=== PATIENT | female | born 1990 | race Caucasian/White ===

== ENCOUNTER 2017-05-13 18:39 | Emergency (ER) | payer OTHER ==
[2017-05-13] MEDS ORDERED: Meclizine TAB* 12.5 MG PO ONE (19:16)
[2017-05-13 20:54] VITALS: BP 115/72
--- NOTE | 2017-05-14 13:17 | ED ---
Abbi Peng Rebecca, scribed for Carmen Vaughan MD on 05/13/17 at 1918 . Dizziness - HPI Summary HPI Summary: Pt is a 27 y/o F who presents to ED c/o dizziness. Today at approximately 1820 while driving in to work, she suddenly started experiencing dizziness characterized as spinning. Describes the sensation as "like those things that they put [employer] people in to train for space" and that "it's not just one direction, it's all planes." States that when she walks, she hits the vasquez. Sx aggravated by nothing, alleviated by closing her eyes. Additionally notes symptoms of a URI that began 2 days ago consisting of sore throat (resolved after 1 day), hoarse voice, cough and phlegm buildup. Denies nausea, MORSE, rhinorrhea, rash, CP, SOB. Only daily medication is a multivitamin. PMHx vertigo , experienced when she had a cold, resolved in 24 hours by sleeping. No chance of - took a negative test the other day. A0. Allergy to coconut. - History Of Current Complaint Chief Complaint: EDDizziness Stated Complaint: VERTIGO WHILE DRIVING Time Seen by Provider: 05/13/17 19:16 Hx Obtained From: Patient Onset/Duration: Still Present, Suddenly Character: Room Spinning Aggravating Factor(s): Nothing Alleviating Factor(s): Closing Eyes Associated Signs And Symptoms: Positive: Other: - sore throat (resolved), hoarse voice, cough and phlegm buildup. Negative: Nausea, Chest Pain, SOB - Allergies/Home Medications Allergies/Adverse Reactions: Allergies Allergy/AdvReac Type Severity Reaction Status Date / Time Coconut Oil Allergy Intermediate Hives Unverified 12/27/12 14:44 PMH/Surg Hx/FS Hx/Imm Hx EENT History: Reports: Other - Hx cryptic tonsil (R side) Neurological History: Reports: Other Neuro Impairments/Disorders - Hx Vertigo Infectious Disease History: No Infectious Disease History: Denies: Traveled Outside the [place] in Last 30 Days - Family History Known Family History: Positive: Diabetes - maternal, Other - Prostate CA ( paternal) - Social History 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 Negative: Nasal Discharge Negative: Chest Pain Positive: Cough. Negative: Shortness Of Breath Negative: Nausea Negative: Rash Neurological: Other - Dizziness Negative: Headache All Other Systems Reviewed And Are Negative: Yes Physical Exam Triage Information Reviewed: Yes Vital Signs On Initial Exam: Initial Vitals Temp Pulse Resp BP Pulse Ox 97.8 F 89 14 114/63 99 05/13/17 18:43 05/13/17 18:43 05/13/17 18:43 05/13/17 18:43 05/13/17 18:43 Vital Signs Reviewed: Yes Appearance: Positive: No Pain Distress, Well-Nourished, Ill-Appearing Skin: Positive: Warm, Skin Color Reflects Adequate Perfusion Head/Face: Positive: Normal Head/Face Inspection Eyes: Positive: Normal ENT: Positive: Pharyngeal erythema, TMs normal, Tonsillar swelling - Minimally enlarged tonsil on the right. Negative: Tonsillar exudate Neck: Positive: Supple Respiratory/Lung Sounds: Positive: Clear to Auscultation, Breath Sounds Present , Other - No respiratory distress Cardiovascular: Positive: RRR, Pulses are Symmetrical in both Upper and Lower Extremities, Other - Brisk capillary refill. Negative: Murmur Abdomen Description: Positive: Nontender, Soft Bowel Sounds: Positive: Present Musculoskeletal: Positive: Normal, Strength/ROM Intact Neurological: Positive: Sensory/Motor Intact, Alert, Oriented to Person Place, Time, Facial Symmetry, Speech Normal Psychiatric: Positive: Normal - [place] Coma Scale Coma Scale Total: 15 Diagnostics - Vital Signs Vital Signs Temp Pulse Resp BP Pulse Ox 05/13/17 18:53 94 100 05/13/17 18:43 97.8 F 89 14 114/63 99 - Laboratory Lab Results: Lab Results 05/13/17 Range/Units 20:06 Group A Strep Rapid Negative (Negative) Lab Statement: Any lab studies that have been ordered have been reviewed, and results considered in the medical decision making process. Re-Evaluation - Re-Evaluation First Eval Re-Evaluation Time: 20:34 Change: Improved Comment: Discussed D/C plan with the pt and strep results. Pt's sx have improved. Answered any questions. Dizzy Course/Dx - Course Assessment/Plan: Pt is a 27 y/o F who presents to ED c/o dizziness. Today at approximately 1820 while [address] in to work, she suddenly started experiencing dizziness characterized as spinning. Describes the sensation as "like those things that they put [employer] people in to train for space" and that "it's not just one direction, it's all planes." States that when she walks, she hits the vasquez. Sx aggravated by nothing, alleviated by closing her eyes. Additionally notes symptoms of a URI that began 2 days ago consisting of sore throat ( resolved after 1 day), hoarse voice, cough and phlegm buildup. Denies nausea, MORSE , rhinorrhea, rash, CP, SOB. Only daily medication is a multivitamin. PMHx vertigo, experienced when she had a cold, resolved in 24 hours by sleeping. No chance of - took a negative test the other day. A0. Allergy to coconut. Group A Rapid Strep is negative. In the ED course, the pt received Meclizine which improved sx. Pt will be D/C to home with Dx of labrynthitis and vertigo and a follow up with her PCP. She understands and agrees with this plan. Offered the pt a work release for this Sunday (05/16) but she declined. Allergies noted. Pt medications reviewed this visit. - Diagnoses Provider Diagnoses: Labyrinthitis, Vertigo Discharge - Discharge Plan Condition: Stable Disposition: HOME Prescriptions: Meclizine TAB* [Antivert 12.5 TAB*] 25 mg PO TID #20 tab Patient Education Materials: Vertigo (ED), Labyrinthitis (ED) Forms: *Work Release Referrals: Trudy Mars SYSTEM ARCHIVE ANALYST [Primary Care Provider] - 3 Days The documentation as recorded by the Abbi vega Rebecca accurately reflects the service I personally performed and the decisions made by me, Carmen Vaughan MD.
== END 2017-05-13 20:54 | disposition home or self-care (01) ==
LOC: ED 18:39
DX: H83.09 Labyrinthitis, unspecified ear (principal); R42 Dizziness and giddiness
CPT/HCPCS: 87651; 99282; A9270-GY